=== PATIENT | female | born 1995 | race African-American/Black ===

== ENCOUNTER 2017-05-23 19:57 | Emergency (ER) | payer MEDICAID ==
[~2017-05-23] VITALS: Ht 167.6 cm; Wt 57.0 kg
[~2017-05-23 19:57] MED LIST: IOHEXOL-350 100 ML BOTTLE ONE; SODIUM CHLORIDE 0.9% 10ML VIAL ONE
[2017-05-24] MEDS ORDERED: KETOROLAC 30MG/ML VIAL IV ONE
[2017-05-24] MEDS ORDERED: ONDANSETRON HCL 4MG/2ML VIAL IV ONE
[2017-05-24] MEDS ORDERED: SODIUM CHLORIDE 0.9% 1,000 ML IV ONE
[2017-05-24 01:01] LABS: HCG SCREEN NEGATIVE
[2017-05-24 06:20] VITALS: BP 101/60
== END 2017-05-24 08:20 | disposition home or self-care (01) ==
LOC: ER 20:15
DX: M54.2 Cervicalgia (principal); R68.84 Jaw pain; V43.52XA Car driver injured in collision with other type car in traffic accident, initial encounter; Y93.89 Activity, other specified; Y92.488 Other paved roadways as the place of occurrence of the external cause
CPT/HCPCS: 36415; 70498; 71010; 82565; 84520; 84703; 96361; 96374; 96375; 99285; A4216; J1885; J2405; J7030; Q9967; Z7610